=== PATIENT | male | born 1975 | race Caucasian/White ===

== ENCOUNTER 2016-05-19 08:30 | Emergency (ER) | payer OTHER | END 2016-05-19 09:15 | disposition left against medical advice (07) | LOC: ER1 08:30 | DX: Z53.21 Procedure and treatment not carried out due to patient leaving prior to being seen by health care provider (principal) ==

== ENCOUNTER 2016-07-12 10:35 | Emergency (ER) | payer OTHER | END 2016-07-12 17:24 | disposition home or self-care (01) | LOC: ER1 10:35 | DX: S20.212A Contusion of left front wall of thorax, initial encounter (principal); X58.XXXA Exposure to other specified factors, initial encounter; Y92.009 Unspecified place in unspecified non-institutional (private) residence as the place of occurrence of the external cause | CPT/HCPCS: 71111; 96372; 99283; J1885 ==